=== PATIENT | female | born 1995 | race Hispanic/Latino ===

== ENCOUNTER → 2018-07-23 | Outpatient (CLI) | payer OTHER | END | disposition home or self-care (01) | LOC: RAH 10:43 | PROVIDERS: ATTEND Physician Assistant | DX: M25.571 Pain in right ankle and joints of right foot (principal) | CPT/HCPCS: 73610 ==

== ENCOUNTER 2021-08-18 10:44 | Emergency (ER) | payer OTHER ==
[~2021-08-18] VITALS: Ht 157.5 cm; Wt 99.3 kg
[2021-08-18] MEDS: ACETAMINOPHEN 500 MG TABLET PO ONE (11:19)
[2021-08-18] MEDS ORDERED: ACET-66 PO (11:41)
[2021-08-18 13:07] VITALS: BP 132/90
== END 2021-08-18 13:05 | disposition home or self-care (01) ==
LOC: EDH 10:44
DX: U07.1 COVID-19 (principal)
CPT/HCPCS: 87635; 99283; C9803